=== PATIENT | female | born 1995 | race Caucasian/White ===

== ENCOUNTER → 2020-04-15 | Outpatient (REF) | payer OTHER ==
[2020-04-15 18:29] LABS: APPEARANCE, URINE HAZY (CLEAR); BACTERIA, URINE AUTO 2+ (NEGATIVE); BILIRUBIN, URINE AUTO NEGATIVE (NEGATIVE); BLOOD, URINE BLOOD NEGATIVE (NEGATIVE); COLOR, URINE YELLOW (YELLOW); GLUCOSE, URINE (UA) AUTO NEGATIVE (NEGATIVE); KETONE, URINE AUTO NEGATIVE (NEGATIVE); LEUKOCYTE ESTERASE, URINE AUTO NEGATIVE (NEGATIVE); NITRITE, URINE AUTO NEGATIVE (NEGATIVE); PROTEIN, URINE AUTO NEGATIVE (NEGATIVE); RBC, URINE AUTO 0 /HPF (0-3); SPECIFIC GRAVITY URINE AUTO 1.005 (1.002-1.035); SQUAMOUS EPITHELIAL CELL UR AU 6 /HPF (0-6); UROBILINOGEN, URINE AUTO 0.2 mg/dL (0.0-2.0); WBC, URINE AUTO 1 /HPF (0-3)
== END ==
LOC: M LAB REF 17:07
PROVIDERS: ATTEND Physician Assistant Medical
DX: N39.0 Urinary tract infection, site not specified (principal)

== ENCOUNTER → 2021-05-16 | Outpatient (CLI) | payer OTHER ==
[2021-05-16 12:28] LABS: HEMATOCRIT 35.5 % (36.0-47.0); HEMOGLOBIN 12.9 g/dl (12.0-15.5); MEAN CORPUSCULAR HEMOGLOBIN 32.7 pg (27.0-33.0); MEAN CORPUSCULAR HGB CONC 36.3 g/dl (32.0-36.5); MEAN CORPUSCULAR VOLUME 89.9 fl (80.0-96.0); PLATELET COUNT, AUTOMATED 205 10^3/uL (150-450); RED BLOOD COUNT 3.95 10^6/uL (4.00-5.40); WHITE BLOOD COUNT 8.4 10^3/uL (4.0-10.0)
--- NOTE | 2021-05-16 13:01 | REP ---
INDICATION: PREG 30W1D, BPP W/ GROWTH , HTN / LABS 1ST COMPARISON: None. TECHNIQUE: Transabdominal obstetrical ultrasound with color Doppler evaluation. FINDINGS: Examination demonstrates a single live intrauterine in breech presentation. motion is identified by technologist. Placenta is noted posterior and grade 1 without evidence for placenta previa or abruption. Amniotic fluid volume is normal. Cervix measures 3.3 cm in length and appears closed.. Selected gestational age: 30 weeks 1 day with SIRI 07/24/2021. Gestational age by current measurements 30 weeks 2 days with SIRI 07/23/2021. FHR equals 150 beats per minute. BPD: 7.4 cm at 29 weeks 4 days HC: 27.9 cm at 30 weeks 4 days AC: 26.2 cm at 30 weeks 2 days FL: 5.8 cm at 30 weeks 1 day HL: 5.3 cm at 31 weeks 0 days HC/AC: 1.07 Estimated weight 1536 grams (42ndpercentile). JENNA: 16.7 cm Umbilical artery SD ratio: 3.01 (1.95-4.09) Biophysical profile score 8/8 IMPRESSION: Single live intrauterine demonstrating appropriate interval growth. Breech presentation. Amniotic fluid volume normal. Biophysical profile score: 8/8 <Electronically signed by Morris Alexander > 05/16/21 1257
[2021-05-16 13:05] LABS: ALT/SGPT 28 U/L (12-78); BILIRUBIN,TOTAL 0.3 MG/DL (0.2-1.0); BLOOD UREA NITROGEN 8 MG/DL (7-18); CARBON DIOXIDE LEVEL 25 MEQ/L (21-32); CHLORIDE LEVEL 107 MEQ/L (98-107); GLOMERULAR FILTRATION RATE > 60.0 (>60); GLUCOSE, FASTING 89 MG/DL (70-100); POTASSIUM SERUM 3.9 MEQ/L (3.5-5.1); SODIUM LEVEL 139 MEQ/L (136-145); TOTAL PROTEIN 6.4 GM/DL (6.4-8.2); URIC ACID 4.8 MG/DL (2.6-6.0)
[2021-05-16 13:40] LABS: LDH LACTATE DEHYDROGENASE 158 U/L (84-246)
[2021-05-16 14:42] LABS: CREATININE,RANDOM URINE 16.3 MG/DL; TOTAL PROTEIN,RANDOM URINE 6.4 MG/DL (0.0-12.0)
== END ==
LOC: M RAD 11:14 → M LAB 11:14
PROVIDERS: ATTEND Obstetrics & Gynecology
DX: O10.013 Pre-existing essential hypertension complicating pregnancy, third trimester (principal); Z3A.31 31 weeks gestation of pregnancy

== ENCOUNTER → 2021-05-19 | Outpatient (REF) | payer OTHER ==
[2021-05-19 15:30] LABS: URINE TOTAL PROTEIN 14.1 MG/DL (0-12)
[2021-05-19 15:45] LABS: TOTAL PROTEIN 24 HOUR URINE 317.2 MG/24HR (50-150)
== END ==
LOC: M LAB REF 15:05
PROVIDERS: ATTEND Obstetrics & Gynecology
DX: H53.9 Unspecified visual disturbance (principal)

== ENCOUNTER 2021-07-10 13:11 | Inpatient (IN) | payer OTHER ==
[~2021-07-10] VITALS: Ht 182.9 cm; Wt 152.3 kg
[2021-07-10] VITALS (8 sets, daily range): BP systolic 126–162; BP diastolic 72–109
[2021-07-10] MEDS ORDERED: OXYTOCIN DRIP 30 UNITS in IV 1 EA IV PRN ×4 (14:15)
[2021-07-10] MEDS ORDERED: LIDOCAINE 1% MDV 20ML VIAL INFIL PRN (14:15)
[2021-07-10] MEDS ORDERED: TRANEXAMIC ACID INJection 1,000 MG in NS 100 ML IV PRN (14:15)
[2021-07-10] MEDS ORDERED: CARBOPROST TROMETHAMINE 250 MCG/ML AMP IM PRN (14:15)
[2021-07-10] MEDS ORDERED: miSOPROStol 50MCG 1/2 TABLET SL ONE ×2 (14:40→20:10)
[2021-07-10 14:41] LABS: HEMATOCRIT 34.1 % (36.0-47.0); HEMOGLOBIN 12.1 g/dl (12.0-15.5); MEAN CORPUSCULAR HEMOGLOBIN 31.6 pg (27.0-33.0); MEAN CORPUSCULAR HGB CONC 35.5 g/dl (32.0-36.5); PLATELET COUNT, AUTOMATED 223 10^3/uL (150-450); RED BLOOD COUNT 3.83 10^6/uL (4.00-5.40); WHITE BLOOD COUNT 8.3 10^3/uL (4.0-10.0)
[2021-07-10] MEDS ORDERED: PRENTAB9 PO (14:55)
[2021-07-10] MEDS ORDERED: LABE200T32 PO (14:55)
[2021-07-10] MEDS ORDERED: HOME MED LIST COMPLETE! XX SCH ×2 (15:00→18:40)
[2021-07-10 15:24] LABS: ALT/SGPT 27 U/L (12-78); BILIRUBIN,TOTAL 0.4 MG/DL (0.2-1.0); CREATININE FOR GFR 0.54 MG/DL (0.55-1.30); GLOMERULAR FILTRATION RATE > 60.0 (>60); LDH LACTATE DEHYDROGENASE 188 U/L (84-246); URIC ACID 5.6 MG/DL (2.6-6.0)
[2021-07-10 19:35] LABS: CREATININE,RANDOM URINE 74.2 MG/DL; TOTAL PROTEIN,RANDOM URINE 12.1 MG/DL (0.0-12.0)
[2021-07-10] MEDS ORDERED: LABETALOL 200 MG TAB PO ONE (22:40)
[2021-07-11] VITALS (45 sets, daily range): BP systolic 97–161; BP diastolic 53–84
[2021-07-11] MEDS: miSOPROStol 25MCG 1/4 TABLET SL SCH ×2 (01:30→05:30)
[2021-07-11] MEDS ORDERED: OXYTOCIN DRIP 30 UNITS in IV 1 EA IV SCH (04:45)
[2021-07-11] MEDS: LR 1,000 ML IV SCH ×4 (06:15→22:15)
[2021-07-11] MEDS ORDERED: BUTORPHANOL 2 MG/ML INJ (J0595) IV ONE (19:30)
[2021-07-11] MEDS ORDERED: PROMETHAZINE INJ 25 MG/ML VIAL (J2550) IM ONE (19:30)
[2021-07-11] MEDS ORDERED: FENTANYL 2MCG/ML ROPIVACAINE 0.2% IN 0.9% NACL 100ML IVBAG As Ordered ONE (19:33)
[2021-07-11] MEDS ORDERED: diphenhydrAMINE 50MG/ML VIAL (J1200) IV PRN (20:45)
[2021-07-11] MEDS ORDERED: FENTANYL/ROPIVACAINE/NACL BAG 100 ML EPIDURAL SCH (20:45)
[2021-07-11] MEDS ORDERED: NALOXONE INJ 0.4MG/1ML VIAL (J2310 PER 1MG) IV PRN (20:45)
[2021-07-11] MEDS ORDERED: REFRIGERATOR IV KEYS XX PRN (20:45)
[2021-07-11] MEDS ORDERED: ONDANSETRON 4MG/2ML VIAL IV PRN (20:45)
[2021-07-11] MEDS ORDERED: EPIDURAL COMMENT XX SCH (20:45)
[2021-07-11] MEDS ORDERED: ePHEDrine SULFATE 25 MG/5 ML(5MG/ML) SYRINGE IV PRN (20:45)
[2021-07-11] MEDS ORDERED: LACTATED RINGER'S 1000 ML IV PRN (20:45)
[2021-07-11] MEDS ORDERED: EPIDURAL/PCA KEYS XX PRN (20:45)
[2021-07-12] VITALS (8 sets, daily range): BP systolic 122–148; BP diastolic 57–89
[2021-07-12] MEDS ORDERED: OXYTOCIN INJ 10 UNITS/ML VIAL (J2590) As Ordered ONE (00:06)
[2021-07-12 02:31] LABS: CORD GAS ABE A -1.5; CORD GAS ABE V -0.1; CORD GAS HCO3 A 26.1 MEQ/L; CORD GAS HCO3 V 24.3 MEQ/L; CORD GAS O2 SAT A 33.9 %; CORD GAS O2 SAT V 79.2 %; CORD GAS PCO2 A 57.2 mmHg; CORD GAS PCO2 V 39.2 mmHg; CORD GAS PH A 7.277 UNITS; CORD GAS PH V 7.411 UNITS; CORD GAS PO2 A 17.8 mmHg; CORD GAS PO2 V 33.6 mmHg; CORD GAS SBC A 21.9 MEQ/L; CORD GAS TCO2 A 27.8 MEQ/L; CORD GAS TCO2 V 25.5 MEQ/L
[2021-07-12] MEDS ORDERED: METHYLERGONOVINE MALEATE 0.2 MG/ML VIAL (J2210) IM PRN (02:40)
[2021-07-12] MEDS ORDERED: ACETAMINOPHEN 500 MG TAB PO PRN (02:40)
[2021-07-12] MEDS ORDERED: ACETAMINOPHEN TAB 650MG DOSE (2X325MG) PO PRN (02:40)
[2021-07-12] MEDS ORDERED: OXYTOCIN DRIP 30 UNITS in IV 1 EA IV ONE (02:40)
[2021-07-12] MEDS ORDERED: ANUSOL HC CREAM 30GM TOP PRN (02:40)
[2021-07-12] MEDS ORDERED: OXYTOCIN INJ 10 UNITS/ML VIAL (J2590) IV ONE (02:40)
[2021-07-12] MEDS ORDERED: MEASLES,MUMPS,RUBELLA VACCINE INJ (MMR-II) (90707) SC SCH (02:40)
[2021-07-12] MEDS ORDERED: OXYTOCIN DRIP 30 UNITS in IV 1 EA IV SCH (02:40)
[2021-07-12] MEDS ORDERED: METHYLERGONOVINE MALEATE 0.2 MG TAB PO PRN (02:40)
[2021-07-12] MEDS ORDERED: DOCUSATE SODIUM 100MG CAPSULE PO PRN (02:40)
[2021-07-12] MEDS ORDERED: MOM 30ML SUSPENSION UDC PO PRN (02:40)
[2021-07-12] MEDS ORDERED: DIBUCAINE 1% OINTMENT 30GM TOP PRN (02:40)
[2021-07-12] MEDS ORDERED: RHOGAM 300 MCG (1500 IU) INJ (J2790) IM SCH (02:40)
[2021-07-12] MEDS ORDERED: LR 1,000 ML IV SCH (02:40)
[2021-07-12] MEDS: IBUPROFEN 600MG TAB PO PRN ×3 (03:56→18:30)
[2021-07-12] MEDS: LR 1,000 ML IV SCH ×2 (07:56→08:09)
[2021-07-12] MEDS: PRENATAL VITAMINS CHEWABLE TABLET PO SCH (08:10)
[2021-07-13 06:00] VITALS: BP 150/85
[2021-07-13 07:43] LABS: HEMOGLOBIN 12.6 g/dl (12.0-15.5); MEAN CORPUSCULAR HEMOGLOBIN 31.6 pg (27.0-33.0); MEAN CORPUSCULAR VOLUME 90.2 fl (80.0-96.0); PLATELET COUNT, AUTOMATED 220 10^3/uL (150-450); RED BLOOD COUNT 3.99 10^6/uL (4.00-5.40); WHITE BLOOD COUNT 9.2 10^3/uL (4.0-10.0)
[2021-07-13] MEDS: PRENATAL VITAMINS CHEWABLE TABLET PO SCH (08:16)
[2021-07-13] MEDS: IBUPROFEN 600MG TAB PO PRN ×2 (09:28→18:28)
[2021-07-13 18:00] VITALS: BP 122/78
[2021-07-14 06:22] VITALS: BP 146/92
[2021-07-14] MEDS ORDERED: IBUP-1022 PO (07:14)
[2021-07-14] MEDS ORDERED: ACET-683 PO (07:14)
[2021-07-14] MEDS: PRENATAL VITAMINS CHEWABLE TABLET PO SCH (09:00)
== END 2021-07-14 11:45 | disposition home or self-care (01) | DRG 807 ==
LOC: M LDI 13:11 → M OBS 07-12 07:42
PROVIDERS: ADMIT Advanced Practice Midwife; ATTEND Obstetrics & Gynecology
PROC: 3E0P7GC Introduction of Other Therapeutic Substance into Female Reproductive, Via Natural or Artificial Opening (ICD-10-PCS; 2021-07-10)
PROC: 10E0XZZ Delivery of Products of Conception, External Approach (ICD-10-PCS; principal; 2021-07-12)
PROC: 0HQ9XZZ Repair Perineum Skin, External Approach (ICD-10-PCS; 2021-07-12)
DX: O10.02 Pre-existing essential hypertension complicating childbirth (principal); Z37.0 Single live birth; Z3A.38 38 weeks gestation of pregnancy; O99.214 Obesity complicating childbirth; E66.9 Obesity, unspecified; Z20.822 Contact with and (suspected) exposure to COVID-19; O70.0 First degree perineal laceration during delivery